=== PATIENT | female | born 1990 | race Caucasian/White ===

== ENCOUNTER 2022-04-10 15:51 | Inpatient (IN) | payer OTHER ==
[2022-04-10 16:32] LABS: BILIRUBIN NEGATIVE (NEGATIVE); BLOOD NEGATIVE Ery/uL (NEGATIVE); CLARITY CLEAR (CLEAR); COLOR YELLOW (YELLOW); GLUCOSE (U) NORMAL (NORMAL); LEUKOCYTES TRACE Leu/uL (NEGATIVE); NITRITE NEGATIVE (NEGATIVE); PROTEIN NEGATIVE (NEGATIVE); SPECIFIC GRAVITY <=1.005 (1.001-1.030); UROBILINOGEN 0.2 mg/dL (0.2-1.0)
[2022-04-10 16:37] LABS: AMPHETAMINES NEGATIVE (NEGATIVE); BARBITURATES NEGATIVE (NEGATIVE); ECSTASY (MDMA) NEGATIVE (NEGATIVE); MARIJUANA (THC) NEGATIVE (NEGATIVE); METHADONE NEGATIVE (NEGATIVE); OPIATES NEGATIVE (NEGATIVE); OXYCODONE NEGATIVE (NEGATIVE)
[2022-04-10 16:41] LABS: BACTERIA TRACE; URINARY RBC RARE
[2022-04-10 17:55] LABS: HCT 41.1 % (37.0-47.0); MCH 32.4 pg (25.0-31.0); MCHC 34.1 g/dL (32.0-36.0); MCV 95.1 fL (78.0-100.0); MPV 11.6 fL (6.0-9.5); RBC 4.32 M/uL (4.20-5.40); WBC 12.3 K/uL (4.0-10.5)
[2022-04-11 16:42] LABS: HCT 34.4 % (37.0-47.0); HGB 11.8 g/dL (12.5-16.0)
== END 2022-04-12 20:13 | disposition home or self-care (01) | DRG 807 ==
LOC: FOD 15:51 → FOB 15:51 → FOD 17:29 → FOB 17:30
PROVIDERS: ADMIT Obstetrics & Gynecology
PROC: 10E0XZZ Delivery of Products of Conception, External Approach (ICD-10-PCS; principal; 2022-04-11)
DX: O99.214 Obesity complicating childbirth (principal); Z37.0 Single live birth; Z3A.39 39 weeks gestation of pregnancy; Z20.822 Contact with and (suspected) exposure to COVID-19; O36.8130 Decreased fetal movements, third trimester, not applicable or unspecified; Z88.2 Allergy status to sulfonamides; Z28.310 Unvaccinated for COVID-19
CPT/HCPCS: 36415; 80305; 81001; 84112; 85014; 85018; J2001; J7120; U0002